=== PATIENT | female | born 1985 | race Caucasian/White ===

== ENCOUNTER 2016-11-21 14:36 | Emergency (ER) | payer OTHER ==
[2016-11-21 14:58] VITALS: BP 137/90; PULSE 95; RESP 16; TEMP 98.6; O2SAT 99; BMI 25.0
--- NOTE | 2016-11-21 15:14 | ED PDOC ---
Arrival/HPI - General Chief Complaint: ENT Problem Time Seen by Provider: 11/21/16 14:56 Historian: Patient - History of Present Illness Narrative History of Present Illness (Text): 11/21/16 15:23 Pt complaining of pain, swelling to the R ear for the past few days, reports a h /o of recent swimming 1 week ago. Denies any fever, chills, URI symptoms, sore throat, rash. Has no additional complaints. Past Medical History - Provider Review Nursing Documentation Reviewed: Yes - Cardiac Other/Comment: tachycardia - Psychiatric Hx Substance Use: No - Surgical History Hx Section: Yes - Anesthesia Hx Anesthesia: Yes Family/Social History - Physician Review Nursing Documentation Reviewed: Yes Family/Social History: No Known Family HX Smoking Status: Never Smoked Hx Alcohol Use: No Hx Substance Use: No Allergies/Home Meds Allergies/Adverse Reactions: Allergies No Known Allergies Allergy (Verified 01/08/16 22:43) Review of Systems - Review of Systems Constitutional: Normal. absent: Fatigue, Weight Change, Fevers Eyes: Normal. absent: Vision Changes, Photophobia, Eye Pain ENT: Normal, Hearing Changes. absent: Sore Throat, Rhinorrhea, Epistaxis Respiratory: Normal. absent: SOB, Cough, Sputum Skin: Normal. absent: Rash, Pruritis, Skin Lesions Physical Exam Vital Signs Reviewed: Yes Vital Signs Temp Pulse Resp BP Pulse Ox 11/21/16 14:54 98.6 F 95 H 16 137/90 99 Temperature: Afebrile Blood Pressure: Normal Pulse: Regular Respiratory Rate: Normal Appearance: Positive for: Well-Appearing, Non-Toxic, Comfortable Pain Distress: None Mental Status: Positive for: Alert and Oriented X 3 - Systems Exam Head: Present: Atraumatic, Normocephalic Pupils: Present: PERRL Extroacular Muscles: Present: EOMI Conjunctiva: Present: Normal Ears: Present: Other (R ear: pain with pulling of the top of the ear, pain with palpation of tragus, edema and erythema of the ear canal, no d/c, moderate amount of cerumen noted, TM slightly visible and normal in appearance. L ear: ear canal appears normal with no erythema and edema, moderate amount of cerumen , TM slightly visible as well and normal in appearance. ) Mouth: Present: Moist Mucous Membranes Pharnyx: Present: Normal. No: ERYTHEMA, EXUDATE Neck: Present: Normal Range of Motion. No: Meningeal Signs, MIDLINE TENDERNESS , Lymphadenopathy Skin: Present: Warm, Dry, Normal Color. No: Rashes Medical Decision Making ED Course and Treatment: 11/21/16 15:28 Pt complaining of pain, swelling to the R ear for the past few days, reports a h /o of recent swimming 1 week ago. Based on history and exam, likely otitis externa, consider otitis media and cerumen impaction. Prescription for Cortisporin otic and debrox ear drops provided to the pt. Patient advised to administer Cortisporin first for one week, then to administer Debrox ear drops, given referral to ENT and advised to f/u without fail. Patient states she fully agrees with and understands discharge instructions. States that she agrees with the plan and disposition. Verbalized and repeated discharge instructions and plan. I have given the patient opportunity to ask any additional questions. 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 Disposition/Present on Arrival - Present on Arrival Any Indicators Present on Arrival: No History of DVT/PE: No History of Uncontrolled Diabetes: No Urinary Catheter: No History of Decub. Ulcer: No History Surgical Site Infection Following: None - Disposition Have Diagnosis and Disposition been Completed?: Yes Diagnosis: Otitis externa Disposition: HOME/ ROUTINE Disposition Time: 15:11 Patient Plan: Discharge Patient Problems: Current Active Problems Problem Status Onset Otitis externa Acute Condition: STABLE Discharge Instructions (ExitCare): Otitis Externa (ED) Print Language: GREENLANDIC Prescriptions: Carbamide Peroxide [Debrox 15 Ml] 5 drop AU BID #1 bottle Neomycin/Polymyxin/Hydrocort [Cortisporin Otic Soln] 4 drop AU QID #1 bottle Referrals: Timbo Bridges DO [Staff Provider] - Follow up with primary Forms: WORK NOTE
== END 2016-11-21 15:31 | disposition home or self-care (01) ==
LOC: ED 14:36
DX: H60.91 Unspecified otitis externa, right ear (principal)

== ENCOUNTER 2016-12-23 11:32 | Emergency (ER) | payer OTHER ==
[2016-12-23 11:47] VITALS: BMI 27.5
[2016-12-23 11:51] VITALS: BP 132/81
[2016-12-23] MEDS ORDERED: Sodium Chloride 0.9% 1,000 ML IV STA (12:19)
[2016-12-23 13:13] LABS: BASO # 0.01 K/mm3 (0.0-2.0); BASO % 0.3 % (0.0-3.0); EOS # 0.1 (0.0-0.7); EOS % 2.4 % (1.5-5.0); GRAN # 1.53 (1.4-6.5); LYMPH # 1.9 (1.2-3.4); LYMPH % 50.5 % (22.0-35.0); MEAN CELL VOLUME 87.7 fl (80.0-105.0); MEAN CORPUSCULAR HEMOGLOBIN 29.3 pg (25.0-35.0); MEAN CORPUSCULAR HGB CONC 33.4 g/dl (31.0-37.0); MEAN PLATELET VOLUME 11.7 fl (7.0-11.0); MONO # 0.3 (0.1-0.6); MONO % 6.8 % (1.0-6.0); PLATELET COUNT 186 10^3/uL (120.0-450.0); RBC 4.78 10^6/uL (3.5-6.1); RED CELL DISTRIBUTION WIDTH 13.4 % (11.5-14.5); WHITE BLOOD COUNT 3.8 10^3/ul (4.5-11.0)
[2016-12-23 13:23] LABS: URINE BILIRUBIN NEGATIVE (NEGATIVE); URINE BLOOD NEGATIVE (NEGATIVE); URINE GLUCOSE (UA) NEGATIVE (NEGATIVE); URINE LEUKOCYTE ESTERASE NEGATIVE Leu/uL (NEGATIVE); URINE NITRATE NEGATIVE (NEGATIVE); URINE PROTEIN NEGATIVE mg/dL (<30 mg/dL); URINE UROBILINOGEN 0.2 E.U./dL (<1 E.U./dL)
[2016-12-23 13:24] LABS: HCG,QUALITATIVE URINE POSITIVE (NEGATIVE); URINE APPEARANCE CLEAR (CLEAR); URINE COLOR YELLOW (YELLOW)
[2016-12-23 13:26] LABS: ALB/GLOB RATIO 1.3 (1.1-1.8); ALBUMIN 4.4 g/dL (3.0-4.8); ALT/SGPT 17 U/L (7-56); AMYLASE 86 U/L (35-125); AST/SGOT 19 U/L (15-39); BLOOD UREA NITROGEN 6 mg/dL (7-21); GFR AFRICAN-AMERICAN > 60; GFR NON-AFRICAN AMERICAN > 60; LIPASE 58 U/L (23-300)
--- NOTE | 2016-12-23 13:43 | ED PDOC ---
Arrival/HPI - General Chief Complaint: Abdominal Pain Time Seen by Provider: 12/23/16 11:57 Historian: Patient - History of Present Illness Narrative History of Present Illness (Text): 12/23/16 12:15 A 31 year old female with no known past medical history presents to the emergency department with a complaint of 1 week duration lower abdomen discomfort that radiates to the back. The patient notes associated nausea and urinary frequency. She also states that she feels dizzy with a slight spinning sensation. The patient notes that she is 4-6 days late on her menstrual period. The patient denies fevers, chills, headache, vomiting, diarrhea, shortness of breath, chest pain, or any other complaint. Time/Duration: 1 week Symptom Onset: Sudden Symptom Course: Unchanged Activities at Onset: Rest, Light Context: Home Past Medical History - Provider Review Nursing Documentation Reviewed: Yes - Infectious Disease Hx of Infectious Diseases: None - Cardiac Other/Comment: tachycardia - Psychiatric Hx Substance Use: No - Surgical History Hx Section: Yes - Anesthesia Hx Anesthesia: Yes Hx Anesthesia Reactions: No Family/Social History - Physician Review Nursing Documentation Reviewed: Yes Family/Social History: No Known Family HX Smoking Status: Never Smoked Hx Alcohol Use: No Hx Substance Use: No Allergies/Home Meds Allergies/Adverse Reactions: Allergies No Known Allergies Allergy (Verified 12/23/16 11:47) Review of Systems - Physician Review All systems were reviewed & negative as marked: Yes - Review of Systems Constitutional: absent: Fevers, Night Sweats Respiratory: absent: SOB Cardiovascular: absent: Chest Pain Gastrointestinal: Abdominal Pain (lower abdominal discomfort, radiates to back) , Nausea. absent: Diarrhea, Vomiting Genitourinary Female: Frequency Neurological: Dizziness (spinning sensation). absent: Headache Physical Exam Vital Signs Reviewed: Yes Vital Signs Temp Pulse Resp BP Pulse Ox 12/23/16 11:50 98.1 F 77 18 132/81 100 Temperature: Afebrile Blood Pressure: Normal Pulse: Regular Respiratory Rate: Normal Appearance: Positive for: Well-Appearing, Non-Toxic, Comfortable Pain Distress: None Mental Status: Positive for: Alert and Oriented X 3 - Systems Exam Head: Present: Atraumatic, Normocephalic Pupils: Present: PERRL Conjunctiva: Present: Normal Mouth: Present: Moist Mucous Membranes Pharnyx: Present: Normal. No: ERYTHEMA, EXUDATE Neck: Present: Normal Range of Motion Respiratory/Chest: Present: Clear to Auscultation, Good Air Exchange. No: Respiratory Distress, Accessory Muscle Use Cardiovascular: Present: Regular Rate and Rhythm, Normal S1, S2. No: Murmurs Abdomen: Present: Normal Bowel Sounds. No: Tenderness, Distention, Peritoneal Signs Back: Present: Normal Inspection Upper Extremity: Present: Normal Inspection. No: Cyanosis, Edema Lower Extremity: Present: Normal Inspection. No: Edema Neurological: Present: GCS=15, CN II-XII Intact, Speech Normal Skin: Present: Warm, Dry, Normal Color. No: Rashes Psychiatric: Present: Alert, Oriented x 3, Normal Insight, Normal Concentration Medical Decision Making ED Course and Treatment: 12/23/16 12:23 Impression: A 31 year old female with one week duration lower abdominal discomfort that radiates to the back. Differential: vs. vertigo vs. gastritis vs UTI Plan: -- Pepcid -- Zofran -- IV Fluids -- Transvaginal US -- Reassess and disposition Progress Notes: 12/23/16 16:30 Sono results: UTERUS: Measures 11.0 by 5.4 x 7.2 cm. Normal in size and appearance. Uterus is anteverted. No fibroid is seen. A tiny intrauterine fluid collection 2.7 mm is present. This may be a tiny early intrauterine gestation which is out of range less than 5 weeks. . No intrauterine yolk sac or embryonic pole is noted. ENDOMETRIUM: Measures 1.4 mm in diameter. As above CERVIX: No cervical abnormality identified. The uterus is 3.3 cm in length RIGHT OVARY: Measures 2.1 x 2.4 x 2.2 cm. No solid mass. Normal flow. LEFT OVARY: Measures 4.6 x 2.7 x 4.7 cm. No solid mass. Normal flow. A 1.8 x 2.5 x 2.0 cm left ovarian cyst is noted FREE FLUID: There is fluid in the cul-de-sac. And the contents in this fluid are peristalsing bowel . OTHER FINDINGS: None. IMPRESSION: A tiny fluid collection in the intrauterine cavity may represent a very early intrauterine gestation less than 5 weeks. No embryonic pole or yolk sac is noted. An ectopic is not entirely excluded. Serial beta HCG levels and follow- up transvaginal ultrasound imaging in 7 to 10 days is recommended for ongoing evaluation. There is free fluid in the cul-de-sac with bowel peristalsis seen here. Patient's test is positive with beta HCG of 1521.20. Sono done with results as noted, essentially early - possible early IUP but not definitive and cannot rule out ectopic. Will d/c home on vitamins and reglan PRN for n/v and f/u OBGYN. - Lab Interpretations Lab Results: 12/23/16 12:40 12/23/16 12:40 Lab Results 12/23/16 12:40: Beta HCG, Quant 1521.20 H 12/23/16 12:40: Sodium 138, Potassium 3.5 L, Chloride 101, Carbon Dioxide 26, Anion Gap 15, BUN 6 L, Creatinine 0.6, Est GFR ( Amer) > 60, Est GFR (Non -Af Amer) > 60, Random Glucose 88, Calcium 9.0, Total Bilirubin 0.5, AST 19, ALT 17, Alkaline Phosphatase 55, Total Protein 7.8, Albumin 4.4, Globulin 3.4, Albumin/Globulin Ratio 1.3, Amylase 86, Lipase 58 12/23/16 12:40: Urine Color Yellow, Urine Appearance Clear, Urine pH 7.0, Ur Specific [place] 1.010, Urine Protein Negative, Urine Glucose (UA) Negative, Urine Ketones Negative, Urine Blood Negative, Urine Nitrate Negative, Urine Bilirubin Negative, Urine Urobilinogen 0.2, Ur Leukocyte Esterase Negative, Urine HCG, Qual Positive 12/23/16 12:40: WBC 3.8 L D, RBC 4.78, Hgb 14.0, Hct 41.9, MCV 87.7, MCH 29.3, MCHC 33.4, RDW 13.4, Plt Count 186, MPV 11.7 H, Gran % 40.0 L, Lymph % (Auto) 50.5 H, [place] % (Auto) 6.8 H, Eos % (Auto) 2.4, Baso % (Auto) 0.3, Gran # 1.53, Lymph # 1.9, [place] # 0.3, Eos # 0.1, Baso # 0.01 - RAD Interpretation Radiology Orders: 12/23/16 12:59 OB TRANSVAGINAL [US] Stat - Medication Orders Current Medication Orders: Discontinued Medications Famotidine (Pepcid) 20 mg IVP STAT STA Stop: 12/23/16 12:19 Last Admin: 12/23/16 12:52 Dose: 20 mg Sodium Chloride (Sodium Chloride 0.9%) 1,000 mls @ 999 mls/hr IV .Q1H1M STA Stop: 12/23/16 13:19 Last Admin: 12/23/16 12:59 Dose: 999 mls/hr Ondansetron HCl (Zofran Inj) 4 mg IVP STAT STA Stop: 12/23/16 12:19 Last Admin: 12/23/16 12:50 Dose: 4 mg - Scribe Statement The provider has reviewed the documentation as recorded by the Adasmibrashi Tejeda Provider Adamsibe Attestation: All medical record entries made by the Scribe were at my direction and personally dictated by me. I have reviewed the chart and agree that the record accurately reflects my personal performance of the history, physical exam, medical decision making, and the department course for this patient. I have also personally directed, reviewed, and agree with the discharge instructions and disposition. Disposition/Present on Arrival - Present on Arrival Any Indicators Present on Arrival: No History of DVT/PE: No History of Uncontrolled Diabetes: No Urinary Catheter: No History of Decub. Ulcer: No History Surgical Site Infection Following: None - Disposition Have Diagnosis and Disposition been Completed?: Yes Diagnosis: Disposition: HOME/ ROUTINE Disposition Time: 16:25 Patient Plan: Discharge Condition: GOOD Additional Instructions: Drink plenty of fluids. Follow up with OBGYN. Recommend repeating labs and sonogram in 7-10 days. Return to the emergency department if any new concerning symptoms. Prescriptions: Metoclopramide [Reglan] 1 tab PO Q8H PRN #15 tab PRN Reason: Nausea/Vomiting Vit Calc,Iron,Folic [ Vitamins] 1 each PO DAILY #120 tablet Referrals: [facility] [place] [Outside] - Follow up with primary Deanna Maxwell MD [Staff Provider] - Follow up with primary Kinza Sage MD [Medical Doctor] - Follow up with primary [facility] [Outside] - [facility] with [facility] [Outside] - Follow up with primary Forms: [employer] (Indian)
--- NOTE | 2016-12-23 15:45 | US ---
HISTORY: , abd pain. Beta HCG levels 1521.2. Clinical dates by LMP are 4 weeks 3 days. COMPARISON: None available. TECHNIQUE: Transvaginal FINDINGS: UTERUS: Measures 11.0 by 5.4 x 7.2 cm. Normal in size and appearance. Uterus is anteverted. No fibroid is seen. A tiny intrauterine fluid collection 2.7 mm is present. This may be a tiny early intrauterine gestation which is out of range less than 5 weeks. . No intrauterine yolk sac or embryonic pole is noted. ENDOMETRIUM: Measures 1.4 mm in diameter. As above CERVIX: No cervical abnormality identified. The uterus is 3.3 cm in length RIGHT OVARY: Measures 2.1 x 2.4 x 2.2 cm. No solid mass. Normal flow. LEFT OVARY: Measures 4.6 x 2.7 x 4.7 cm. No solid mass. Normal flow. A 1.8 x 2.5 x 2.0 cm left ovarian cyst is noted FREE FLUID: There is fluid in the cul-de-sac. And the contents in this fluid are peristalsing bowel . OTHER FINDINGS: None. IMPRESSION: A tiny fluid collection in the intrauterine cavity may represent a very early intrauterine gestation less than 5 weeks. No embryonic pole or yolk sac is noted. An ectopic is not entirely excluded. Serial beta HCG levels and follow-up transvaginal ultrasound imaging in 7 to 10 days is recommended for ongoing evaluation. There is free fluid in the cul-de-sac with bowel peristalsis seen here
[2016-12-23 16:31] VITALS: PULSE 79; RESP 16; TEMP 98; O2SAT 98
== END 2016-12-23 16:32 | disposition home or self-care (01) ==
LOC: ED 11:32
DX: O26.891 Other specified pregnancy related conditions, first trimester (principal); R35.0 Frequency of micturition
CPT/HCPCS: 76817; 80053; 81003; 82150; 83690; 84702; 84703; 85025; 96361; 96374; 96375; 99283; J2405; J7040

== ENCOUNTER 2017-01-03 12:56 | Emergency (ER) | payer MEDICAID, OTHER ==
[2017-01-03 12:56] VITALS: BMI 27.5
[2017-01-03] MEDS ORDERED: Sodium Chloride 0.9% 1,000 ML IV STA (13:16)
[2017-01-03 13:19] VITALS: TEMP 99.1
--- NOTE | 2017-01-03 13:33 | ED PDOC ---
Arrival/HPI - General Chief Complaint: Abdominal Pain Time Seen by Provider: 01/03/17 13:04 Historian: Patient, Spouse - History of Present Illness Narrative History of Present Illness (Text): 01/03/17 13:29 A 31 year old female, who is about 6 weeks , who denies any significant past medical history, returns to the emergency department after 10 days of continued abdominal pain for further evaluation. The patient states she has had chronic lower abdominal pain and lower back pain almost throughout her whole . Denies change in character or location or intensity of pain. She denies nausea or vomiting currently, but slightly decreased appetites. DENIES ANY ABDOMINAL PAIN. Denies leg pain or swelling. Denies chest pain or shortness of breath. Time/Duration: > month (10 days) Symptom Onset: Gradual Symptom Course: Unchanged Activities at Onset: Light Context: Home Past Medical History - Provider Review Nursing Documentation Reviewed: Yes - Infectious Disease Hx of Infectious Diseases: None - Reproductive Menopause: No - Cardiac Other/Comment: tachycardia - Psychiatric Hx Substance Use: No - Surgical History Hx Section: Yes - Anesthesia Hx Anesthesia: Yes Hx Anesthesia Reactions: No Family/Social History - Physician Review Nursing Documentation Reviewed: Yes Family/Social History: Unknown Family HX Smoking Status: Never Smoked Hx Alcohol Use: No Hx Substance Use: No Allergies/Home Meds Allergies/Adverse Reactions: Allergies No Known Allergies Allergy (Verified 01/03/17 13:14) Review of Systems - Review of Systems Constitutional: absent: Fevers Eyes: absent: Vision Changes ENT: absent: Hearing Changes Respiratory: absent: SOB Cardiovascular: absent: Chest Pain Gastrointestinal: Abdominal Pain (Lower abdominal ), Appetite Changes. absent: Diarrhea, Vomiting, Hematochezia, Hematemesis Genitourinary Female: absent: Frequency, Hematuria, Urine Output Changes, Vaginal Bleeding Musculoskeletal: Back Pain (lower back pain). absent: Neck Pain Skin: Normal Neurological: Dizziness. absent: Focal Weakness Endocrine: absent: Diaphoresis Hemo/Lymphatic: absent: Easy Bleeding, Easy Bruising Physical Exam - Physical Exam Narrative Physical Exam (Text): 01/03/17 13:34 Head: Atraumatic. Normocephalic. Eyes: PERRL. EOMI. Conjunctivae are not pale. ENT: Mucous membranes are moist and intact. Oropharynx is clear and symmetric. Neck: Supple. Full ROM. No JVD. No lymphadenopathy. Cardiovascular: Regular rate. Regular rhythm. No murmurs, rubs, or gallops. Distal pulses are 2+ and symmetric. Pulmonary/Chest: No evidence of respiratory distress. Clear to auscultation bilaterally. No wheezing, rales or rhonchi. Abdominal: Soft and non-distended. Mild suprapubic tenderness. No rebound, guarding, or rigidity. No organomegaly. Good bowel sounds. Back: No CVA tenderness. Paraspinal lumbar tenderness. No rash or deformities. Extremities: No edema. No cyanosis. No clubbing. Full range of motion in all extremities. No calf tenderness. Skin: Skin is warm and dry. No petechiae. No purpura. Neurological: Alert, awake, and oriented to person, place, time, and situation. Normal speech. Motor and sensory intact. Psychiatric: Good eye contact. Normal interaction, affect, and behavior. Vital Signs Reviewed: Yes Vital Signs Temp Pulse Resp BP Pulse Ox 01/03/17 17:09 72 17 115/70 99 01/03/17 16:50 75 18 114/68 98 01/03/17 15:00 79 18 116/71 98 01/03/17 13:42 99.1 F 85 18 118/73 98 01/03/17 13:10 99.1 F 85 18 118/73 100 Temperature: Afebrile Blood Pressure: Normal Pulse: Regular Respiratory Rate: Normal Appearance: Positive for: Well-Appearing, Non-Toxic, Comfortable Pain Distress: Mild Mental Status: Positive for: Alert and Oriented X 3 Medical Decision Making ED Course and Treatment: 01/03/17 13:35 Impression: A 31 year old female who is about 6 weeks with persistent mild lower abdominal pain since her started. Differential Diagnosis included but are not limited to: Intrauterine vs. Miscarriage Plan: -- Transvaginal Ultrasound -- IV Fluids -- Labs -- Urinalysis -- Reassess and disposition Prior Visits: Notes and results from previous visits were reviewed. The patient was last seen in the emergency department on 12/23/16 for abdominal pain through . Patient was discharged home. Progress Notes: On exam, patient with no acute bleeding, cv stable. No RUQ pain. No fever or chills or diarrhea. Denies flank pain or acute urinary symptoms. OB Pelvic Ultrasound [employer] Representative : Lawrence Anderson MD Report Date : 01/03/2017 16:45:08 HISTORY:, abdominal pain COMPARISON:None available. FINDINGS: UTERUS: Single intrauterine gestation. pole not visualized Gestational sac diameter equivalent to 6 weeks 0 days gestation age (Ultrasound estimated): 6 weeks 0 days Date of delivery (Ultrasound estimated) : 08/29/2017 cardiac activity reportedly observed but duplex Doppler could not detect a heart rate. 2 mm yolk sac identified. Rina-gestational hemorrhage: None. Uterus measures 12.3 x 6.4 x 7.7 cm. No mass CERVIX:Long and closed. No cervical abnormality seen. RIGHT OVARY:Measures 2.5 x 1.9 x 2.9 cm. No mass. Normal flow. LEFT OVARY:Measures 3.1 x 4.0 x 3.6 cm. No solid mass. Normal flow. 2.9 cm cyst , likely physiologic. FREE FLUID:None. OTHER FINDINGS:None. IMPRESSION: Intrauterine gestational sac. pole not identified. cardiac activity is not yet detectable. Followup with serial beta HCG and transvaginal pelvic ultrasound examination. 01/03/17 17:07 Upon reevaluation the patient has no pain nor bleeding. Ultrasound report thoroughly reviewed with patient and . I have stressed to her ultrasound may represent early , but cannot exclude miscarriage as heartbeat not definitively identified. No adnexal pain noted. present and results reviewed with him as well. All questions answered. Beta-hcg levels reviewed as well. I stressed to her the need to follow up with her flight engineer inspector. - Lab Interpretations Lab Results: 01/03/17 14:00 01/03/17 16:10 Lab Results 01/03/17 16:10: Sodium 138, Potassium 4.1, Chloride 105, Carbon Dioxide 24, Anion Gap 13, BUN 6 L, Creatinine 0.5, Est GFR ( Amer) > 60, Est GFR (Non -Af Amer) > 60, Random Glucose 86, Calcium 8.7, Total Bilirubin 0.3, AST 17, ALT 20, Alkaline Phosphatase 44, Total Protein 6.6, Albumin 3.7, Globulin 2.9, Albumin/Globulin Ratio 1.3 01/03/17 14:00: Urine Color Yellow, Urine Appearance Clear, Urine pH 7.5, Ur Specific [place] 1.010, Urine Protein Negative, Urine Glucose (UA) Negative, Urine Ketones Negative, Urine Blood Negative, Urine Nitrate Negative, Urine Bilirubin Negative, Urine Urobilinogen 0.2, Ur Leukocyte Esterase Negative 01/03/17 14:00: Beta HCG, Quant 71557.00 H 01/03/17 14:00: WBC 4.8 D, RBC 4.89, Hgb 14.5, Hct 42.9, MCV 87.7, MCH 29.7, MCHC 33.8, RDW 13.5, Plt Count 219, MPV 12.0 H, Gran % 49.8 L, Lymph % (Auto) 38.9 H, [place] % (Auto) 9.2 H, Eos % (Auto) 1.9, Baso % (Auto) 0.2, Gran # 2.38, Lymph # 1.9, [place] # 0.4, Eos # 0.1, Baso # 0.01 01/03/17 13:42: POC Glucose (mg/dL) 101 - RAD Interpretation Radiology Orders: 01/03/17 13:15 TRANSVAGINAL [US] Stat - Medication Orders Current Medication Orders: Discontinued Medications Sodium Chloride (Sodium Chloride 0.9%) 1,000 mls @ 1,000 mls/hr IV .Q1H STA Stop: 01/03/17 14:15 Last Admin: 01/03/17 13:38 Dose: 1,000 mls/hr - Scribe Statement The provider has reviewed the documentation as recorded by the Linda Thomas Provider Scribe Attestation: All medical record entries made by the Scribe were at my direction and personally dictated by me. I have reviewed the chart and agree that the record accurately reflects my personal performance of the history, physical exam, medical decision making, and the department course for this patient. I have also personally directed, reviewed, and agree with the discharge instructions and disposition. Disposition/Present on Arrival - Present on Arrival Any Indicators Present on Arrival: No History of DVT/PE: No History of Uncontrolled Diabetes: No Urinary Catheter: No History of Decub. Ulcer: No History Surgical Site Infection Following: None - Disposition Have Diagnosis and Disposition been Completed?: Yes Diagnosis: Intrauterine , Threatened miscarriage Disposition: HOME/ ROUTINE Disposition Time: 17:00 Patient Plan: Discharge Condition: GOOD Discharge Instructions (ExitCare): Threatened Miscarriage (ED), (ED) Additional Instructions: For any fever, any chest pain, any vaginal bleeding, any return or worsening of abdominal pain, any leg pain or swelling, any numbness or weakness, any persistent or worsening of symptoms, get rechecked. You must follow-up with your flight engineer inspector for repeat ultrasound and repeat beta- hcg levels to assess . If you develop and vaginal bleeding or pain get rechecked immediately. Referrals: [facility] [Outside] - Follow up with primary [facility] [Outside] - [facility] with [facility] [[facility]] - Follow up with primary PCP,NO [Primary Care Provider] - Follow up with primary Ayush Hummel MD [Medical Doctor] - Follow up with primary Forms: [facility] (Yoruba)
[2017-01-03 14:12] LABS: PH,URINE 7.5 (4.7-8.0); URINE BILIRUBIN NEGATIVE (NEGATIVE); URINE BLOOD NEGATIVE (NEGATIVE); URINE GLUCOSE (UA) NEGATIVE (NEGATIVE); URINE KETONE NEGATIVE (NEGATIVE); URINE LEUKOCYTE ESTERASE NEGATIVE Leu/uL (NEGATIVE); URINE PROTEIN NEGATIVE mg/dL (<30 mg/dL); URINE UROBILINOGEN 0.2 E.U./dL (<1 E.U./dL)
[2017-01-03 14:14] LABS: BASO # 0.01 K/mm3 (0.0-2.0); BASO % 0.2 % (0.0-3.0); EOS # 0.1 (0.0-0.7); EOS % 1.9 % (1.5-5.0); GRAN # 2.38 (1.4-6.5); GRAN % 49.8 % (50.0-68.0); HEMATOCRIT 42.9 % (36.0-48.0); LYMPH # 1.9 (1.2-3.4); LYMPH % 38.9 % (22.0-35.0); MEAN CELL VOLUME 87.7 fl (80.0-105.0); MEAN CORPUSCULAR HEMOGLOBIN 29.7 pg (25.0-35.0); MEAN CORPUSCULAR HGB CONC 33.8 g/dl (31.0-37.0); MONO # 0.4 (0.1-0.6); MONO % 9.2 % (1.0-6.0); RED CELL DISTRIBUTION WIDTH 13.5 % (11.5-14.5); WHITE BLOOD COUNT 4.8 10^3/ul (4.5-11.0)
[2017-01-03 14:28] LABS: URINE APPEARANCE CLEAR (CLEAR); URINE COLOR YELLOW (YELLOW)
[2017-01-03 16:36] LABS: ALB/GLOB RATIO 1.3 (1.1-1.8); ALKALINE PHOSPHATASE 44 U/L (38-133); ALT/SGPT 20 U/L (7-56); AST/SGOT 17 U/L (15-39); BILIRUBIN,TOTAL 0.3 mg/dL (0.2-1.3); BLOOD UREA NITROGEN 6 mg/dL (7-21); CALCIUM 8.7 mg/dL (8.4-10.5); CARBON DIOXIDE 24 mmol/L (21-33); CHLORIDE 105 mmol/L (98-107); GFR AFRICAN-AMERICAN > 60; GLUCOSE,RANDOM 86 mg/dL (70-110); POTASSIUM 4.1 mmol/L (3.6-5.0); SODIUM 138 mmol/L (132-148); TOTAL PROTEIN 6.6 g/dL (5.8-8.3)
--- NOTE | 2017-01-03 16:46 | US ---
PROCEDURE: OB Pelvic Ultrasound HISTORY: , abdominal pain COMPARISON: None available. FINDINGS: UTERUS: Single intrauterine gestation. pole not visualized Gestational sac diameter equivalent to 6 weeks 0 days gestation age (Ultrasound estimated): 6 weeks 0 days Date of delivery (Ultrasound estimated) : 08/29/2017 cardiac activity reportedly observed but duplex Doppler could not detect a heart rate. 2 mm yolk sac identified. Rina-gestational hemorrhage: None. Uterus measures 12.3 x 6.4 x 7.7 cm. No mass CERVIX: Long and closed. No cervical abnormality seen. RIGHT OVARY: Measures 2.5 x 1.9 x 2.9 cm. No mass. Normal flow. LEFT OVARY: Measures 3.1 x 4.0 x 3.6 cm. No solid mass. Normal flow. 2.9 cm cyst, likely physiologic. FREE FLUID: None. OTHER FINDINGS: None. IMPRESSION: Intrauterine gestational sac. pole not identified. cardiac activity is not yet detectable. Followup with serial beta HCG and transvaginal pelvic ultrasound examination.
[2017-01-03 17:10] VITALS: BP 115/70; PULSE 72; RESP 17; O2SAT 99
== END 2017-01-03 17:21 | disposition home or self-care (01) ==
LOC: ED 12:56
DX: O20.0 Threatened abortion (principal); Z3A.01 Less than 8 weeks gestation of pregnancy
CPT/HCPCS: 76830; 80053; 81003; 82948; 84702; 85025; 96360; 99285; J7040